=== PATIENT | female | born 1985 | race Caucasian/White ===

== ENCOUNTER 2017-06-01 16:00 | Inpatient (IN) | payer OTHER ==
[~2017-06-01] VITALS: Ht 165.1 cm; Wt 61.2 kg
--- NOTE | ~2017-06-01 | PN ---
Unit #: [id number] #: [id number] Patient: FRAN SHAFFER [id number] [facility] [address] [place] [address] [id number] MR#: [id number] NAME: FRAN SHAFFER ROOM: P257 Age: 31 Sex: F Admission Date: 06/01/2017 : 1985 Attending Physician: Fernie Skaggs M.D. Admitting Physician: Fernie Skaggs M.D. Primary Care Physician: Primary Care Physician Brigitte PATELCE PROGRESS NOTES DATE 06/03/2017 DISCUSSION Fran is a 31-year-old female seen on 06/03/2017. Patient interviewed. Chart reviewed. Obtained information from nursing staff. Patient is reporting having a lot of problem with the anxiety. Reports Vistaril is not working. Patient withdrawn, isolative, guarded. Complete review of system unremarkable. MENTAL STATUS EXAMINATION General appearance, patient dressed casually. Vital signs, patient refused. Mood and affect labile. Speech monotone. Thought process concrete. Patient denied any suicidal or homicidal ideation but reported having problem with the anxiety. Recent and remote memory poor. Insight and judgement poor. DIAGNOSES 1. Major depressive disorder, recurrent, severe. 2. Anxiety disorder NOS. ASSESSMENT/PLAN Advised to continue with the current medication with a plan to add Inderal 20 mg t.i.d. and hold if pulse less than 60, blood pressure less than 80/60. Dictated by... Keon Conteh/renata TD: 06/03/2017 19:24 JOB #: [id number] Unit #: [id number] #: [id number] Patient: FRAN SHAFFER [facility] PROGRESS NOTES Page 1 of 1 X Fernie Skaggs MD PROGRESS NOTE
--- NOTE | ~2017-06-01 | PN ---
Unit #: [id number] #: [id number] Patient: FRAN SHAFFER [id number] [facility] [address] [place] [address] [id number] MR#: [id number] NAME: FRAN SHAFFER ROOM: P257 Age: 31 Sex: F Admission Date: 06/01/2017 : 1985 Attending Physician: Fernie Skaggs M.D. Admitting Physician: Fernie Skaggs M.D. Primary Care Physician: Primary Care Physician No [facility] PROGRESS NOTES DATE OF SERVICE 06/04/2017 DISCUSSION Ms. Fran Shaffer is a 31-year-old female seen on 06/04/2017. Patient interviewed, chart reviewed. Obtained information from nursing staff. Patient reports she did not like Inderal. Subsequently Inderal was discontinued. The patient reports making progress. The patient was able to maintain safe behavior but still seclusive, isolative, guarded, anxious. Complete review of systems unremarkable. MENTAL STATUS EXAMINATION General appearance, patient dressed casually, thin built. Attention span and concentration fair. Oriented to time, place and person. Mood and affect sad, dysphoric. Speech monotone. Thought process concrete. Patient denied any thoughts of harming self or others. Denied any psychotic symptoms. Recent and remote memory poor. Insight and judgement poor. DIAGNOSES 1. Major depressive disorder recurrent severe. 2. Anxiety disorder NOS. ASSESSMENT/PLAN Advise to discontinue Inderal. Continue with the other medication. If needed consider further adjustment of medication with a plan to consider discharge this week Dictated by... Keon Conteh/lino TD: 06/05/2017 05:32 JOB #: [id number] Unit #: [id number] #: [id number] Patient: FRAN SHAFFER [facility] PROGRESS NOTES Page 1 of 1 X Fernie Skaggs MD PROGRESS NOTE
--- NOTE | ~2017-06-01 | PA ---
Unit #: [id number] #: [id number] Patient: FRAN SHAFFER [id number] [place] [address] [id number] MR#: [id number] NAME: FRAN SHAFFER ROOM: P257 Age: 31 Sex: F Admission Date: 06/01/2017 : 1985 Date of Assessment: Attending Physician: Fernie Skaggs M.D. Admitting Physician: Fernie Skaggs M.D. Primary Care Physician: Primary Care Physician No PSYCHIATRIC ASSESSMENT INFORMANTS The patient reliability, fair; chart reliability, good. CHIEF COMPLAINT Anxiety. HISTORY OF PRESENT ILLNESS Fran is a 31-year-old female, presented with the above-mentioned complaint. The patient is currently unemployed, single, presented with suicidal ideation with a plan to walk into the traffic. The patient reported recent breakup moving with her parents, poor quality of life. The patient denied any homicidal ideation, previously attempted suicide and has a history of self-mutilating behavior, substance abuse, using pain pills. The patient denied any psychotic symptom. Needing inpatient admission at this time for psychiatric stabilization. The patient admitted using marijuana, age of onset 30; opioid, age of onset 27, longest period of sobriety 3 years. The patient denied any blackouts, but history of withdrawal symptoms. No history of any IV drug use, HIV, or hepatitis. The patient reported nausea, diarrhea, agitation, and diaphoresis. PAST PSYCHIATRIC HISTORY Remarkable for history of previous treatment at [facility] in the past for bipolar disorder and anxiety. FAMILY HISTORY AND SOCIAL HISTORY The patient lives with her mother. No history of abuse. No history of any legal problem. MEDICAL HISTORY Remarkable for history of back surgery, rods in back, permanent nerve damage according to the reports. Musculoskeletal; muscle strength and tone, no atrophy or abnormal movement. Gait normal. MEDICATIONS HISTORY The patient is on Neurontin and Mobic. ALLERGIES No known drug allergies. SUBSTANCE ABUSE HISTORY Please see above. Unit #: [id number] #: [id number] Patient: FRAN SHAFFER REVIEW OF SYSTEMS HEENT: Eyes, clear. Ears, nose, mouth, and throat; clear. CARDIOVASCULAR: Unremarkable. RESPIRATORY: Unremarkable. GI: Unremarkable. : Unremarkable. SKIN: Unremarkable. LYMPH NODE: Unremarkable. NEUROLOGIC: Unremarkable. ENDOCRINE: Unremarkable. HEMATOLOGIC: Unremarkable. ALLERGIC/IMMUNOLOGIC: Unremarkable. MUSCULOSKELETAL: Muscle strength and tone, no atrophy or abnormal movement. Gait normal. MENTAL STATUS EXAMINATION CONSTITUTIONAL: Measurement of vital signs; temperature 98.8, pulse 96, respirations 18, 100% oxygen saturation, blood pressure 118/81, height 5 feet 5 inches, weight 135 pounds. General appearance; the patient dressed casually. The patient did not show any facial deformity. Musculoskeletal; please see above. PSYCHIATRIC EXAMINATION Description of speech; regular rate, normal volume, normal articulation, coherent. Description of thought process, goal directed. Description of association, intact. Description of abnormal psychotic thinking; the patient denied any hallucination, but depression and suicidal ideation. Description of the patient's judgment, concerning everyday activity, poor. Social situation, poor. Concerning psychiatric condition, poor. Complete mental status examination; oriented in time, place, and person. Recent and remote memory, fair. Attention span and concentration, fair. Language, able to name object and repeat phrases. Fund of knowledge, aware of current event and passive vocabulary intact. Mood and affect, sad and dysphoric. Insight and judgment, fair to poor. ASSETS AND LIABILITIES Assets; the patient is articulate and able to take care of her ADL. Liability; history of depression. ADMITTING DIAGNOSES Psychiatric: Major depressive disorder, recurrent, severe, F33.2; opioid use disorder, severe, F11.20. Secondary diagnosis: Deferred. Medical diagnoses: History of chronic back problem, rods placed in back, permanent nerve damage. Stressors: Psychosocial stressors. PSYCHIATRIC PLAN AND TREATMENT GOAL AND DISCHARGE PLAN 1. Advised to admit the patient on the inpatient unit. Provide safe, supportive, and structured environment. 2. Ordered labs; CBC, CMP, UA, and UDS. 3. Precaution for self-harm. The patient to resume home medication. If needed, consider further adjustment of medication such as adding Zyprexa 10 mg at bedtime and Vistaril 25 mg t.i.d. The patient to attend all the Unit #: [id number] #: [id number] Patient: FRAN SHAFFERARANZA programming, group therapy, individual therapy, family session if possible. 4. Treatment goal to attain euthymic mood, gain insight into her problem, and learn coping skills. 5. Discharge plan, plan to stabilize the patient and consider followup in outpatient program. ESTIMATED LENGTH OF STAY 5 to 7 days. Dictated by... Keon Conteh/carlo TD: 06/03/2017 16:14 JOB #: [id number] PSYCHIATRIC ASSESSMENT Page 1 of 1 X Fernie Skaggs MD X PSYCHIATRIC ASSESSMENT
--- NOTE | ~2017-06-01 | HP ---
Unit #: [id number] #: [id number] Patient: FRAN SHAFFER [id number] [place] [address] [id number] MR#: [id number] NAME: FRAN SHAFFER ROOM: P257 Age: 31 Sex: F Admission Date: 06/01/2017 : 1985 Attending Physician: Fernie Skaggs M.D. Admitting Physician: Fernie Skaggs M.D. Primary Care Physician: Primary Care Physician No HISTORY AND PHYSICAL HISTORY OF PRESENT ILLNESS Fran is a 31 year old admitted to [address] [place] [address] with depression and increased anxiety. PAST MEDICAL HISTORY Nothing significant. PAST SURGICAL HISTORY 1. Low back. 2. Hysterectomy. ALLERGIES Penicillin, morphine, codeine. SOCIAL HISTORY She does not smoke or drink alcohol. Admits to using marijuana on occasion and abuses opioids on occasion. FAMILY HISTORY Medically noncontributory. REVIEW OF SYSTEMS CONSTITUTIONAL: No fever or chills. HEENT: Denies any sore throat, ear pain or runny nose. CARDIOVASCULAR: Denies chest pain, irregular heart rhythm or palpitations. CHEST: Denies shortness of breath or cough. No hemoptysis. GASTROINTESTINAL: Denies nausea, vomiting, diarrhea or chronic constipation. ENDOCRINE: Denies history of increased thirst or urination. No recent significant weight loss or gain. GENITOURINARY: Denies dysuria, frequency, or hematuria. SKIN: Denies any rashes. HEMATOLOGIC: Denies history of increased bleeding or bruising. MUSCULOSKELETAL: Denies any hot, swollen joints. No generalized muscle pain. NEUROLOGIC: Denies problems with vision or speech. No frequent, severe headaches. No numbness, tingling or weakness in any extremities. Denies loss of bladder or bowel control. CURRENT MEDICATIONS 1. Zyprexa 10 mg q.h.s. 2. Neurontin 800 mg t.i.d. 3. Vistaril 25 mg t.i.d. Unit #: [id number] #: [id number] Patient: FRAN SHAFFER 4. Nicotine patch 14 mg daily. 5. Mobic 15 mg daily. 6. Milk of Magnesia p.r.n. 7. Maalox p.r.n. 8. Tylenol p.r.n. 9. Flexeril 5 mg t.i.d. p.r.n. 10. Zofran p.r.n. PHYSICAL EXAMINATION GENERAL: Alert, well-nourished, in no apparent distress. VITAL SIGNS: Blood pressure 120/80, heart rate 80, respirations 16, temperature 98.6. WEIGHT: 135. HEIGHT: 5 feet 5 inches. SKIN: Warm and dry without rash or lesion. HEENT: Normocephalic. TMs not viewed. Oral and nasal passages clear. Conjunctivae clear. PERRLA. EOMs intact. NECK: Supple without lymphadenopathy or thyromegaly. HEART: Regular rate and rhythm without murmur. LUNGS: Clear. ABDOMEN: Soft, nontender. : Not done. EXTREMITIES: No evidence of cyanosis, clubbing or edema. Moves all without focal deficit. NEUROLOGICAL: Grossly within normal limits. Cranial Nerves: II: Visual meeks are intact. III, IV AND : Extraocular movements are intact. Pupils are equal, round and reactive to light. V: Facial sensation is grossly normal. VII: Facial movements and expression are normal. VIII: Auditory acuity grossly intact. IX, X: Uvula is midline. Phonation is normal. XI: Patient shrugs shoulders and turns head normally. XII: Tongue protrudes in the midline. Sensory and Motor Function: Sensory and motor sensation is grossly normal. Motor: moves all extremities well. Coordination: Gait is normal. Deep Tendon Reflexes: Intact. IMPRESSION Psychiatric admission. RECOMMENDATIONS PSYCHIATRIC: Per psychiatrist. MEDICAL: See no contraindication to participate in facility's activities. MEDICAL PROGNOSIS Good. MEDICAL CONDITION Stable. Dictated by... Sapphire Cervantes P.A.-C. for Keon Mukherjee/[facility] Unit #: [id number] #: [id number] Patient: FRAN SHAFFER TD: 06/02/2017 20:48 JOB #: [id number] HISTORY AND PHYSICAL Page 1 of 1 X Sapphire Cervantes HISTORY AND PHYSICAL
--- NOTE | ~2017-06-01 | DS ---
Unit #: [id number] #: [id number] Patient: FRAN SHAFFER [id number] [facility] [address] [place] [address] [id number] I MR#: [id number] NAME: FRAN SHAFFER ROOM: P257 Age: 31 Sex: F Admission Date: 06/01/2017 : 1985 Discharge Date: 06/05/2017 Attending Physician: Fernie Skaggs M.D. Primary Care Physician: Primary Care Physician No DISCHARGE SUMMARY REASON FOR ADMISSION Anxiety, depression. DIAGNOSTIC STUDIES Laboratory data, urine drug screen positive for benzodiazepines, cocaine, marijuana. HOSPITAL COURSE The patient was admitted to inpatient unit on June 01, and discharged on 06/05/17. The patient was treated with group therapy, individual therapy, medication management, and the patient was responsive to treatment, showed improvement. Subsequently, the patient was discharged with the plan to follow up in outpatient program. DISCHARGE DIAGNOSES Psychiatric: [place] I Major depressive disorder, recurrent, severe, F33.2. Opiate use disorder, severe, F11.20. Cannabis abuse, moderate, F12.20. Cocaine use disorder, moderate, F14.20. [place] II Deferred. [place] III Chronic back problem. Chronic pain. [place]on placed in back. Prominent nerve damage. [place] IV Psychosocial stressors. [place] V INSTRUCTIONS TO PATIENT The patient is to follow up in outpatient clinic as well as with social work msw. DISCHARGE MEDICATIONS 1. Neurontin 800 mg three times a day for anxiety, chronic pain, the patient was given a week's supply only 2. Zyprexa 10 mg daily for psychosis 3. Vistaril 25 mg three times a day for anxiety CONDITION AT DISCHARGE The patient pleasant and cooperative, denied any psychotic symptoms, or any suicidal ideation. Unit #: [id number] #: [id number] Patient: FRAN SHAFFER PROGNOSIS Guarded. DIET AND ACTIVITY As tolerated. Dictated by... Keon Conteh/jane TD: 06/08/2017 07:12 JOB #: [id number] DISCHARGE SUMMARY Page 1 of 1 X Fernie Skaggs MD X DISCHARGE SUMMARY
--- NOTE | ~2017-06-01 | PN ---
Unit #: [id number] #: [id number] Patient: FRAN SHAFFER [id number] [facility] [address] [place] [address] [id number] MR#: [id number] NAME: FRAN SHAFFER ROOM: P257 Age: 31 Sex: F Admission Date: 06/01/2017 : 1985 Attending Physician: Fernie Skaggs M.D. Admitting Physician: Fernie Skaggs M.D. Primary Care Physician: Primary Care Physician Brigitte MCHUGH PROGRESS NOTES DATE OF SERVICE 06/02/2017 DISCUSSION Ms. Valladares is a 31-year-old female seen on 06/02/2017. Patient interviewed, chart reviewed. Obtained information from nursing staff. Patient was compliant and cooperative. Mood sad, dysphoric, flat affect, guarded, withdrawn, isolative, anxious, having suicidal ideation, anxiety. Complete review of systems unremarkable. MENTAL STATUS EXAMINATION General appearance, patient dressed casually. Attention span and concentration fair. Oriented to place and person. Mood and affect sad, depressed. Speech monotone. Thought process concrete. Patient reported having suicidal thoughts, able to contract for safety. Recent and remote memory poor. Insight and judgement poor. DIAGNOSES Major depressed disorder recurrent severe. ASSESSMENT/PLAN Advise to continue with current combination of medication. If needed consider further adjustment of medication. Dictated by... Keon Conteh/lino TD: 06/02/2017 22:38 JOB #: [id number] Unit #: [id number] #: [id number] Patient: FRAN SHAFFER [facility] PROGRESS NOTES Page 1 of 1 X Fernie Skaggs MD PROGRESS NOTE
[~2017-06-01 16:00] MED LIST: ADDERALL PO; ALBUTEROL17 GM INH; ALPRAZOLAM PO; DARVOCET-N 1001 TAB PO; SEROQUEL PO
[2017-06-02 12:33] LABS: BASOPHIL# 0.1 X10e3 (0-0.3); BASOPHIL% 0.8 % (0-2.5); EOSINOPHIL# 0.1 X10e3 (0-0.7); EOSINOPHIL% 1.2 % (0.0-7.0); HEMATOCRIT 38.9 % (35.0-45.0); HEMOGLOBIN 13.4 gm/dL (12.0-16.0); LYMPHOCYTE# 2.3 X10e3 (1.0-3.5); LYMPHOCYTE% 31.9 % (17.0-45.0); MEAN CELL VOLUME 87.7 FL (83-96); MEAN CORPUSCULAR HEMOGLOBIN 30.2 PG (28-34); MEAN CORPUSCULAR HGB CONC 34.4 g/dL (30-36); MEAN PLATELET VOLUME 8.9 FL (6.5-11.5); MONOCYTE# 0.5 X10e3 (0-1.0); MONOCYTE% 7.1 % (3.0-12.0); NEUTROPHIL# 4.2 X10e3 (1.5-7.1); PLATELET COUNT 307 X10e3 (140-420); RED BLOOD COUNT 4.44 X10e (3.90-5.30); RED CELL DISTRIBUTION WIDTH 13.8 % (11.0-15.5); WHITE BLOOD COUNT 7.1 X10e3 (4.0-10.5)
[2017-06-02 12:42] LABS: DIFF IND NO
[2017-06-02 12:45] LABS: ALBUMIN SERUM 4.1 g/dL (3.5-5.0); BILIRUBIN,TOTAL 0.4 mg/dL (0.2-2.0); BUN/CREATININE RATIO 15.71; CALCIUM SERUM 9.8 mg/dL (8.4-10.2); CREATININE SERUM 0.7 mg/dL (0.6-1.4); GLOM FILT RATE Estimated 115.5 mL/min (>60); POTASSIUM 4.2 mmol/L (3.5-5.1); PROTEIN TOTAL SERUM 7.2 g/dL (6.0-8.3)
== END 2017-06-05 12:35 | disposition home or self-care (01) | DRG 885 ==
LOC: P2L 21:22
PROVIDERS: Psychiatry & Neurology Psychiatry
DX: F33.2 Major depressive disorder, recurrent severe without psychotic features (principal); F11.20 Opioid dependence, uncomplicated; R45.851 Suicidal ideations; Z90.710 Acquired absence of both cervix and uterus; Z88.0 Allergy status to penicillin; Z88.5 Allergy status to narcotic agent; F41.9 Anxiety disorder, unspecified
CPT/HCPCS: 80053; 84703; 85025